=== PATIENT | male | born 1985 | race Caucasian/White ===

== ENCOUNTER → 2016-12-04 | Outpatient (CLI) | payer OTHER ==
[~2016-12-04] MED LIST: HYDROCODONE-AP1 EAC6 PO
== END | disposition home or self-care (01) ==
LOC: LITH 07:11
DX: N20.0 Calculus of kidney (principal); J45.909 Unspecified asthma, uncomplicated; G47.33 Obstructive sleep apnea (adult) (pediatric); Z98.890 Other specified postprocedural states